=== PATIENT | male | born 1960 | race Caucasian/White ===

== ENCOUNTER 2016-08-06 18:27 | Emergency (ER) | payer OTHER | END 2016-08-06 20:40 | disposition short-term general hospital (02) | LOC: ER 18:27 | DX: I21.4 Non-ST elevation (NSTEMI) myocardial infarction (principal); I20.0 Unstable angina; I10 Essential (primary) hypertension; E11.9 Type 2 diabetes mellitus without complications; E78.00 Pure hypercholesterolemia, unspecified; R74.8 Abnormal levels of other serum enzymes; Z79.899 Other long term (current) drug therapy; Z88.5 Allergy status to narcotic agent | CPT/HCPCS: 36415; 96365; 96375; J1644 ==